=== PATIENT | female | born 1960 | race Caucasian/White ===

== ENCOUNTER → 2016-10-22 | Outpatient (CLI) | payer OTHER ==
[~2016-10-22] MED LIST: ATENOLOL50 MG PO; AZITHROMYCIN250 MG PO; BACTRIM DS TABL1 TA1 PO; CARVEDILOL6.25 MG PO; CLEOCIN HCL300 M1 PO; COUMADIN PO; LIPITOR PO; LITE COAT ASPI325 M1 PO; MOTRIN600 M1 PO; NABUMETONE PO; PHENERGAN DM PO; PRILOSEC PO; SKELAXIN PO; TRIAMCINOLONE A15 G3 TOP; VIBRAMYCIN100 M1 PO; VISTARIL PO; VISTARIL50 MG PO; ZANTAC PO; ZOFRAN ODT4 MG SL
--- NOTE | ~2016-10-22 | MY11 ---
[facility] A Service of [facility] RADIOLOGY TEXT RESULTS PATIENT: AMRK CEVALLOS LOCATION: [facility] : 58 UNIT #: [id number] AGE: [address]: AMARA MATA APRN SEX: F ORDER DR: [id number] [facility] [address] [place], [place] [address] [id number] O MR#: [id number] Acc #: [id number] NAME: MARK CEVALLOS. : 1960 SEX: F STUDY DATE/TIME: 10/22/2016 11:47 UNIT: [facility] ROOM: STUDY DESCRIPTION: MY Mammogram Screening Dig Antione Attending Physician: Amara Mata Aprn Ordering Physician: Amara Mata Aprn Primary Care Physician: Amara Mata Aprn MEDICAL IMAGING REPORT This report is preliminary unless electronic signature is present EXAM Digital screening mammograms 10/22/2016 HISTORY 56-year-old woman positive family history, 2 aunts. Stated interim weight gain. Annual screening exam. COMPARISON 04/30/2014 with right breast ultrasound same date. FINDINGS Digital imaging of each breast was completed utilizing screening protocol. Review includes FDA-approved CAD device. Breast parenchyma is partially fatty replaced. Approximate 2.0 cm circumscribed nodule deep to the right nipple anterior third remains well circumscribed and for the most part stable to slightly smaller. Previous ultrasound confirmed benign cyst characteristics. I see no evolving parenchymal density or suspicious microcalcifications. There is no architectural deformity. IMPRESSION Benign mammogram. Stable to slightly smaller simple cyst right breast. Annual screening recommended. Patients over the age of 40 are entered into a reminder system with target due date for the next mammogram. A result letter will also be sent to the patient. BIRADS: 2 Benign Finding Dictated by... Moreno Gunn M.D. THIS IS AN ELECTRONICALLY VERIFIED REPORT [facility] A Service of [facility] RADIOLOGY TEXT RESULTS PATIENT: MARK CEVALLOS LOCATION: [facility] : 58 UNIT #: [id number] AGE: [address]: AMARA MATA APRN SEX: F ORDER DR: Moreno Gunn M.D. at 10/23/2016 9:51 AM Brandin TD: 10/23/2016 08:47 JOB #: [id number] MEDICAL IMAGING REPORT Page 1 of 1 COPY
== END | disposition home or self-care (01) ==
LOC: CWCC 10-20 13:00
DX: Z12.31 Encounter for screening mammogram for malignant neoplasm of breast (principal); Z80.3 Family history of malignant neoplasm of breast; N60.01 Solitary cyst of right breast
CPT/HCPCS: G0202